=== PATIENT | male | born 1945 | race African-American/Black ===

== ENCOUNTER 2019-10-02 10:33 | Emergency (ER) | payer MEDICARE, MEDICAID ==
[~2019-10-02] VITALS: Ht 175.3 cm; Wt 75.0 kg
[2019-10-02 10:50] VITALS: BP 120/66
[2019-10-02] MEDS ORDERED: IBUPROFEN 600MG TABLET PO ONE (11:15)
[2019-10-02] MEDS ORDERED: BACITRACIN ZINC OINT UDPKT TOP ONE (11:15)
[2019-10-02] MEDS ORDERED: LIDOCAINE HCL/PF 1% 10 MG/ML 5ML VIAL IJ ONE (11:15)
[2019-10-02] MEDS ORDERED: TETANUS, DIPHTHERIA, PERTUSSIS VAC/PF 0.5ML (>7YR OLD) IM ONE (11:15)
== END 2019-10-02 12:32 | disposition home or self-care (01) ==
LOC: ER 12:23
DX: S71.111A Laceration without foreign body, right thigh, initial encounter (principal); W22.8XXA Striking against or struck by other objects, initial encounter; Y93.01 Activity, walking, marching and hiking; Y92.480 Sidewalk as the place of occurrence of the external cause; Z23 Encounter for immunization
CPT/HCPCS: 12002; 90471; 90715; 99283; J3490

== ENCOUNTER 2019-10-13 12:33 | Emergency (ER) | payer MEDICARE, MEDICAID ==
[~2019-10-13] VITALS: Ht 177.8 cm; Wt 77.0 kg
[2019-10-13] MEDS ORDERED: DOXYCYCLINE HYCLATE 100MG CAPSULE PO ONE (14:00)
[2019-10-13] MEDS ORDERED: CEPHALEXIN 250MG CAPSULE PO ONE (14:00)
[2019-10-13 15:11] VITALS: BP 122/58
== END 2019-10-13 15:18 | disposition home or self-care (01) ==
LOC: ER 12:33
DX: T81.41XA Infection following a procedure, superficial incisional surgical site, initial encounter (principal); L08.89 Other specified local infections of the skin and subcutaneous tissue; R03.0 Elevated blood-pressure reading, without diagnosis of hypertension; R73.9 Hyperglycemia, unspecified; Q74.1 Congenital malformation of knee; Y84.8 Other medical procedures as the cause of abnormal reaction of the patient, or of later complication, without mention of misadventure at the time of the procedure; Y92.098 Other place in other non-institutional residence as the place of occurrence of the external cause; Z87.828 Personal history of other (healed) physical injury and trauma
CPT/HCPCS: 73562; 82962; 99283

== ENCOUNTER 2019-11-30 03:29 | Inpatient (IN) | payer MEDICARE, MEDICAID ==
[~2019-11-30] VITALS: Ht 182.9 cm; Wt 71.2 kg
[2019-11-30] MEDS ORDERED: MORPHINE SULFATE 4 MG/ML CPJ (NOT FOR IM USE) IV STA (05:14)
[2019-11-30] MEDS ORDERED: ONDANSETRON HCL 4MG/2ML INJ IV STA (05:14)
[2019-11-30 06:22] LABS: CHLORIDE 105 mEq/L (98-107)
[2019-11-30 06:23] LABS: BG BASE EXCESS -1.5 mmol/L (-2.0-2.0); BG CARBOXYHEMOGLOBIN 3.3 % (0.5-1.5); BG DEOXYHEMOGLOBIN 3.4 % (0.0-5.0); BG FRACTION INSPIRED OXYGEN 21; BG HCO3 ACT 23.5 mmol/L (22.0-26.0); BG METHEMOGLOBIN 0.1 % (0.0-1.5); BG OXYGEN SATURATION 96.5 % (92.0-98.5); BG OXYHEMOGLOBIN 93.2 % (94.0-97.0); BG PCO2 40.4 mmHg (35.0-45.0); BG PH 7.382 (7.350-7.450); BG PO2 87.9 mmHg (75.0-100.0); BG SAMPLE SITE RIGHT RADIAL; BG TOTAL HEMOGLOBIN 14.4 g/dL (12.0-18.0); BG VENT MODE ROOM AIR
[2019-11-30 06:27] LABS: ETHANOL BLOOD < 10 mg/dL
[2019-11-30 06:28] LABS: BASOPHILS % 0.9 % (0.0-2.0); EOSINOPHILS % 1.5 % (0.0-5.0); HEMOGLOBIN. 14.9 g/dL (14.0-18.0); LYMPHOCYTES % 26.3 % (20.0-50.0); MEAN CORPUSCULAR HEMOGLOBIN 33.8 pg (28.0-32.0); MEAN CORPUSCULAR VOLUME 99.7 fL (80.0-94.0); MONOCYTES % 7.4 % (2.0-8.0); NEUTROPHILS % 63.9 % (40.0-76.0); PLATELET 184 x1000/uL (130-400); RED BLOOD CELL COUNT 4.41 mill/uL (4.7-6.1); RED CELL DISTRIBUTION WIDTH 13.3 % (11.6-14.6)
[2019-11-30] MEDS ORDERED: IOHEXOL-350 100 ML BOTTLE ONE ×2 (06:41→13:25)
[2019-11-30 07:29] LABS: *AMPHETAMINES SCREEN URINE NEGATIVE (NEGATIVE); *BARBITURATES SCREEN URINE NEGATIVE (NEGATIVE); *COCAINE SCREEN URINE PRESUMTIVE POSITIVE (NEGATIVE); METHADONE URINE SCREEN NEGATIVE (NEGATIVE); OPIATES URINE SCREEN PRESUMTIVE POSITIVE (NEGATIVE)
[2019-11-30 07:30] LABS: CANNABINOID URINE SCREEN PRESUMTIVE POSITIVE (NEGATIVE); PHENCYCLIDINE URINE SCREEN NEGATIVE (NEGATIVE)
[2019-11-30 07:32] LABS: *BENZODIAZEPINES SCREEN URINE NEGATIVE (NEGATIVE)
[2019-11-30] MEDS ORDERED: ACETAMINOPHEN 325MG TABLET PO PRN (09:00)
[2019-11-30] MEDS ORDERED: CLONIDINE 0.1MG TABLET PO PRN (09:00)
[2019-11-30] MEDS ORDERED: ONDANSETRON HCL 4MG/2ML INJ IV PRN (09:00)
[2019-11-30] MEDS: MORPHINE SULFATE 2 MG/ML CPJ (NOT FOR IM USE) IV PRN (09:27)
[2019-11-30] MEDS: ASPIRIN 81MG TABLET PO SCH (09:27)
[2019-11-30] MEDS ORDERED: ENOXAPARIN 80MG/0.8ML SYR SUBCUT NR (13:30)
[2019-11-30 13:42] LABS: CREATINE KINASE MB FRACTION 41.3 ng/mL (0.5-3.6)
[2019-11-30] MEDS ORDERED: DILTIAZEM HCL 60MG TABLET PO SCH (14:00)
[2019-11-30] MEDS: CLOPIDOGREL 75MG TABLET PO SCH (14:07)
[2019-11-30 14:34] LABS: PARTIAL THROMBOPLASTIN TIME 29.8 sec (23.4-31.0); PROTHROMBIN TIME 10.9 sec (9.6-11.0)
[2019-11-30 16:00] VITALS: BP 129/94
[2019-11-30 16:21] VITALS: BP 129/94
[2019-11-30] MEDS ORDERED: CLOPIDOGREL 75MG TABLET PO NR (17:00)
[2019-11-30] MEDS ORDERED: MORPHINE SULFATE 4 MG/ML CPJ (NOT FOR IM USE) IV PRN (17:00)
[2019-11-30 18:14] VITALS: BP 128/98
[2019-11-30] MEDS ORDERED: NITROGLYCERIN OINT 1GM/INCH UDPKT TD SCH (18:30)
[2019-11-30 20:00] VITALS: BP 116/87
[2019-11-30] MEDS: ATORVASTATIN CALCIUM 40MG TABLET PO SCH (20:58)
[2019-11-30] MEDS: ENOXAPARIN 80MG/0.8ML SYR SUBCUT SCH (21:02)
[2019-11-30 22:00] VITALS: BP 118/85
[2019-12-01] VITALS (12 sets, daily range): BP systolic 92–130; BP diastolic 61–111
[2019-12-01] MEDS: DILTIAZEM HCL 60MG TABLET PO SCH ×2 (01:37→10:00)
[2019-12-01] MEDS: NITROGLYCERIN OINT 1GM/INCH UDPKT TD SCH ×3 (05:45→22:00)
[2019-12-01] MEDS: ASPIRIN 81MG TABLET PO SCH (08:29)
[2019-12-01] MEDS: CLOPIDOGREL 75MG TABLET PO SCH (08:30)
[2019-12-01] MEDS: ENOXAPARIN 80MG/0.8ML SYR SUBCUT SCH ×2 (10:21→21:58)
[2019-12-01] MEDS: LISINOPRIL 5MG TABLET PO SCH (21:00)
[2019-12-01] MEDS: METOPROLOL TARTRATE 25MG TABLET PO SCH (21:00)
[2019-12-01] MEDS: ATORVASTATIN CALCIUM 40MG TABLET PO SCH (21:58)
[2019-12-01] MEDS: MORPHINE SULFATE 2 MG/ML CPJ (NOT FOR IM USE) IV PRN (21:59)
[2019-12-02] VITALS (12 sets, daily range): BP systolic 75–125; BP diastolic 45–74
[2019-12-02] MEDS: NITROGLYCERIN OINT 1GM/INCH UDPKT TD SCH ×3 (06:00→22:00)
[2019-12-02 07:20] LABS: BASOPHILS % 0.2 % (0.0-2.0); HEMATOCRIT. 42.6 % (42.0-52.0); HEMOGLOBIN. 14.8 g/dL (14.0-18.0); LYMPHOCYTES % 15.7 % (20.0-50.0); MEAN CORPUSCULAR HEMOGLOBIN 34.1 pg (28.0-32.0); MEAN CORPUSCULAR VOLUME 98.2 fL (80.0-94.0); MEAN PLATELET VOLUME 9.5 fl (7.4-10.4); MONOCYTES % 11.2 % (2.0-8.0); NEUTROPHILS % 72.9 % (40.0-76.0); PLATELET 199 x1000/uL (130-400); RED BLOOD CELL COUNT 4.34 mill/uL (4.7-6.1); RED CELL DISTRIBUTION WIDTH 13.1 % (11.6-14.6)
[2019-12-02 07:21] LABS: CHLORIDE 102 mEq/L (98-107)
[2019-12-02] MEDS: ASPIRIN 81MG TABLET PO SCH (08:00)
[2019-12-02] MEDS: METOPROLOL TARTRATE 25MG TABLET PO SCH ×2 (08:00→20:15)
[2019-12-02] MEDS: LISINOPRIL 5MG TABLET PO SCH (08:00)
[2019-12-02] MEDS: CLOPIDOGREL 75MG TABLET PO SCH (08:00)
[2019-12-02] MEDS: ENOXAPARIN 80MG/0.8ML SYR SUBCUT SCH ×2 (09:07→22:16)
[2019-12-02] MEDS: SODIUM CHLORIDE 0.9% 250 ML IV NR ×3 (14:29→15:54)
[2019-12-02] MEDS: ATORVASTATIN CALCIUM 40MG TABLET PO SCH (20:16)
[2019-12-02] MEDS ORDERED: LISINOPRIL 2.5MG TABLET PO SCH (21:00)
[2019-12-03] VITALS (12 sets, daily range): BP systolic 80–101; BP diastolic 42–62
[2019-12-03] MEDS: NITROGLYCERIN OINT 1GM/INCH UDPKT TD SCH ×3 (05:46→22:00)
[2019-12-03 06:20] LABS: HEMATOCRIT. 39.4 % (42.0-52.0); HEMOGLOBIN. 13.4 g/dL (14.0-18.0); MEAN CORPUSCULAR HEMOGLOBIN 33.5 pg (28.0-32.0); MEAN CORPUSCULAR VOLUME 98.6 fL (80.0-94.0); MEAN PLATELET VOLUME 9.3 fl (7.4-10.4); PLATELET 165 x1000/uL (130-400); RED CELL DISTRIBUTION WIDTH 13.5 % (11.6-14.6)
[2019-12-03 06:29] LABS: CHLORIDE 107 mEq/L (98-107)
[2019-12-03] MEDS: ASPIRIN 81MG TABLET PO SCH (08:38)
[2019-12-03] MEDS: CLOPIDOGREL 75MG TABLET PO SCH (08:38)
[2019-12-03] MEDS: METOPROLOL TARTRATE 25MG TABLET PO SCH ×2 (08:39→20:52)
[2019-12-03] MEDS: ENOXAPARIN 80MG/0.8ML SYR SUBCUT SCH (08:40)
[2019-12-03] MEDS ORDERED: ENOXAPARIN 80MG/0.8ML SYR SUBCUT SCH (10:45)
[2019-12-03 11:23] LABS: PLATELET ESTIMATE NORMAL
[2019-12-03] MEDS: ATORVASTATIN CALCIUM 40MG TABLET PO SCH (20:53)
[2019-12-04] VITALS (7 sets, daily range): BP systolic 80–108; BP diastolic 46–69
[2019-12-04] MEDS: NITROGLYCERIN OINT 1GM/INCH UDPKT TD SCH (06:00)
[2019-12-04 07:50] LABS: HEMATOCRIT. 37.7 % (42.0-52.0); HEMOGLOBIN. 12.9 g/dL (14.0-18.0); MEAN CORPUSCULAR HEMOGLOBIN 33.7 pg (28.0-32.0); MEAN CORPUSCULAR VOLUME 98.4 fL (80.0-94.0); MEAN PLATELET VOLUME 9.4 fl (7.4-10.4); PLATELET 173 x1000/uL (130-400); RED BLOOD CELL COUNT 3.83 mill/uL (4.7-6.1); RED CELL DISTRIBUTION WIDTH 13.3 % (11.6-14.6)
[2019-12-04 07:53] LABS: CHLORIDE 105 mEq/L (98-107)
[2019-12-04] MEDS: ASPIRIN 81MG TABLET PO SCH (08:23)
[2019-12-04] MEDS: METOPROLOL TARTRATE 25MG TABLET PO SCH (08:23)
[2019-12-04] MEDS: CLOPIDOGREL 75MG TABLET PO SCH (08:23)
[2019-12-04] MEDS ORDERED: ENOXAPARIN 30MG/0.3ML SYR SUBCUT SCH (10:00)
[2019-12-04 13:28] LABS: PLATELET ESTIMATE NORMAL
== END 2019-12-04 14:18 | disposition home or self-care (01) | DRG 280 ==
LOC: ER 03:29 → 3WST 05:26 → EDBEDREQSVC 13:30 → ENRESERV 13:33
PROVIDERS: ADMIT Internal Medicine; ATTEND Internal Medicine
DX: I21.3 ST elevation (STEMI) myocardial infarction of unspecified site (principal); R57.0 Cardiogenic shock; E87.1 Hypo-osmolality and hyponatremia; I50.22 Chronic systolic (congestive) heart failure; F12.90 Cannabis use, unspecified, uncomplicated; F17.210 Nicotine dependence, cigarettes, uncomplicated; I10 Essential (primary) hypertension; J44.9 Chronic obstructive pulmonary disease, unspecified; I27.20 Pulmonary hypertension, unspecified; I11.0 Hypertensive heart disease with heart failure; I25.5 Ischemic cardiomyopathy; I73.9 Peripheral vascular disease, unspecified; Z71.51 Drug abuse counseling and surveillance of drug abuser; Z71.6 Tobacco abuse counseling
CPT/HCPCS: 36415; 36600; 71045; 71275; 80048; 80053; 80061; 80305; 80320; 82375; 82550; 82553; 82805; 83605; 83880; 84443; 84484; 85025; 85379; 93005; 93306; 96374; 99291; J1650; J2270; J2405; Q9967; G0480